=== PATIENT | female | born 1960 | race Caucasian/White ===

== ENCOUNTER → 2016-07-07 | Outpatient (CLI) | payer OTHER ==
[~2016-07-07] MED LIST: ALIGN4 MG PO; ALLEGRA180 MG PO; AMBIEN5 MG PO; AZELASTINE HCL6 ML OPHTH; CALCIUM-MAG-ZI1 EACH PO; COLACE100 MG PO; DILAUDID 2MG(HYD2 MG PO; FLONASE 50 MCG/16 GM NOSE; MIRALAX17 GM PO; MOBIC15 MG PO; NEURONTIN300 MG PO; VITAMIN D1000 UNIT PO; XARELTO10 MG PO; ZOLOFT100 MG PO
== END | disposition disaster alternative care site (69) ==
LOC: GBCOE 11:41
DX: Z12.31 Encounter for screening mammogram for malignant neoplasm of breast (principal)
CPT/HCPCS: G0202